=== PATIENT | female | born 1960 | race Caucasian/White ===

== ENCOUNTER → 2016-11-29 | Day surgery (SDC) | payer OTHER ==
[~2016-11-29] MED LIST: ASPIRIN81 M1 PO; CRESTOR10 MG PO; DICYCLOMINE HCL20 MG PO; LEVOTHYROXINE75 MC1 PO; LIPITOR20 MG PO; METOPROLOL SUCC25 MG PO; ZOLOFT50 MG PO
--- NOTE | ~2016-11-29 | OR ---
Unit #: [id number] #: [id number] Patient: MARIBEL GALINDO [id number] [address] [address] [id number] O MR#: [id number] NAME: MARIBEL GALINDO ROOM: Date of Procedure: 11/29/2016 Admission Date: 11/29/2016 Surgeon: Seth Scott M.D. : 1960 Attending Physician: Seth Scott M.D. Primary Care Physician: Viry Reyna M.D. OPERATIVE REPORT PREOPERATIVE DIAGNOSES The patient has presented for colorectal cancer surveillance. She has personal history of colon polyps. PROCEDURES PERFORMED Colonoscopy and polypectomy. POSTOPERATIVE DIAGNOSES 2 sessile polyps, one each in the proximal descending and mid sigmoid colon. These were 5 to 8 mm each. Both were removed and sent for histology. Rest of the examination up to cecum was normal. The quality of the prep was excellent. RECOMMENDATIONS 1. Repeat colonoscopy in 5 years. 2. Followup results of polyp histology. SEDATION USED MAC. DESCRIPTION OF PROCEDURE Following detailed explanation of the potential risks and complications of a colonoscopy, namely perforation, bleeding, and complications related to sedation, the patient was brought to GI lab and laid in the left lateral decubitus position. A digital rectal examination was performed, which was normal. Lubricated tip of the Olympus video colonoscope was inserted through the anus and advanced under direct vision. The scope was advanced and passed up to sigmoid into descending colon. No diverticula were seen in this area. The scope tip was then navigated all the way up to cecum with visualization of the ileocecal valve and the appendiceal orifice. Preparation was excellent with good visualization and photodocumentation was obtained. Successive segments of the colonic mucosa were examined upon withdrawal. The patient was noted to have 2 sessile polyps, one each in the proximal descending and mid sigmoid colon. These were 6 to 8 mm each. Both were sessile and were removed using snare polypectomy. They were retrieved and sent for histology. No additional polyps were noted. The patient did not have any diverticulosis nor any hemorrhoids. The scope was then withdrawn. The patient returned to recovery area. She tolerated the procedure without any postprocedure complications. Dictated by... Unit #: [id number] #: [id number] Patient: MARIBEL GALINDO M.D. AK/french TD: 11/29/2016 08:14 JOB #: [id number] CC: Khushi Lovell M.D. OPERATIVE REPORT X Seth Scott MD X PROCEDURE OPERATIVE NOTE
== END | disposition home or self-care (01) ==
LOC: COPS 05:47
DX: Z12.11 Encounter for screening for malignant neoplasm of colon (principal); D12.4 Benign neoplasm of descending colon; D12.5 Benign neoplasm of sigmoid colon; Z86.010 Personal history of colon polyps
CPT/HCPCS: 88305